=== PATIENT | male | born 1960 | race Caucasian/White ===

== ENCOUNTER 2017-07-13 14:41 | Inpatient (IN) | payer OTHER ==
[~2017-07-13] VITALS: Ht 172.7 cm; Wt 101.8 kg
[2017-07-13] MEDS ORDERED: ONDANSETRON 2MG/ML, 2ML ONE (15:06)
[2017-07-13] MEDS ORDERED: HYDROmorphone 2 MG/ML, 1ML ONE ×4 (15:06→19:28)
[2017-07-13] MEDS: HYDROmorphone 1 MG/ML, 1ML IVPush PRN ×4 (15:12→17:39)
[2017-07-13 15:19] LABS: HEMATOCRIT 51.5 % (39.2-51.8); HEMOGLOBIN 17.1 g/dL (13.7-18.0); WHITE BLOOD COUNT 18.3 x10^3/uL (3.4-10)
[2017-07-13 15:30] LABS: BLOOD UREA NITROGEN 16 mg/dL (7-18)
[2017-07-13] MEDS ORDERED: ONDANSETRON 2MG/ML, 2ML IVPush ONE (15:30)
[2017-07-13] MEDS ORDERED: SODIUM CHLORIDE 0.9% 1,000ML IVBOLUS ONE ×2 (15:30→17:00)
[2017-07-13] MEDS ORDERED: SODIUM CHLORIDE FLUSH 10ML SYR IVF ONE (15:30)
[2017-07-13 15:32] LABS: ASPARTATE AMINO TRANSFERASE 153 U/L (15-37)
[2017-07-13 15:35] LABS: DIFF TOTAL CELLS COUNTED 100 CELL DIFF
[2017-07-13 15:38] LABS: VERIFY COUNTS? YES
[2017-07-13] MEDS ORDERED: SUVO20TA PO (16:18)
[2017-07-13] MEDS ORDERED: TRAZ100T15 PO (16:18)
[2017-07-13] MEDS ORDERED: LISI1TAB3 PO (16:18)
[2017-07-13] MEDS ORDERED: BUPR150T6 PO (16:18)
[2017-07-13] MEDS ORDERED: PIPERACILLIN/TAZO/PMX 3.375GM 50 ML ONE (16:42)
[2017-07-13] MEDS ORDERED: PIPERACILLIN/TAZO/PMX 3.375GM 50 ML IV ONE (17:00)
[2017-07-13] MEDS ORDERED: SODIUM CHLORIDE 0.9% 1,000 ML IV ONE (17:27)
[2017-07-13] MEDS ORDERED: LABETALOL 5MG/ML, 20ML IVPush PRN (17:30)
[2017-07-13] MEDS ORDERED: ACETAMINOPHEN 325 MG TABLET PO PRN (17:30)
[2017-07-13] MEDS ORDERED: DOCUSATE 100 MG CAPSULE PO PRN (17:30)
[2017-07-13] MEDS: PIPERACILLIN/TAZO/PMX 3.375GM 50 ML IV SCH ×2 (17:30→23:57)
[2017-07-13] MEDS ORDERED: POLYETHYLENE GLYCOL 17 GM PACKET PO PRN (17:30)
[2017-07-13] MEDS ORDERED: SODIUM CHLORIDE FLUSH 10ML SYR IVF PRN (17:30)
[2017-07-13] MEDS ORDERED: BISACODYL 10 MG SUPP PR PRN (17:30)
[2017-07-13] MEDS ORDERED: HYDROmorphone 1 MG/ML, 1ML IVPush PRN (17:30)
[2017-07-13] MEDS ORDERED: ONDANSETRON 2MG/ML, 2ML IVPush PRN ×2 (17:30)
[2017-07-13] MEDS: POTASSIUM CHLORIDE 20 MEQ in LACTATED RINGERS 1,000 ML IV SCH (19:03)
[2017-07-13] MEDS: HYDROmorphone 2 MG/ML, 1ML IVPush PRN ×3 (19:30→22:52)
[2017-07-13] MEDS: TEMPLATE NON-FORMULARY MED. (Suvorexant (Belsomra) 20 MG) HOMEMEDPO SCH (21:00)
[2017-07-13] MEDS: TRAZODONE 100MG TABLET PO SCH (21:00)
[2017-07-13 21:01] VITALS: BP 149/103
[2017-07-13] MEDS ORDERED: DIPHENHYDRAMINE 50 MG/ML, 1ML IVPush ONE (21:30)
[2017-07-14] MEDS ORDERED: KETOROLAC 30 MG/1 ML IVPush PRN ×2 (01:30)
[2017-07-14] MEDS: HYDROmorphone 2 MG/ML, 1ML IVPush PRN ×9 (02:00→22:46)
[2017-07-14] MEDS: KETOROLAC 30 MG/1 ML IVPush PRN ×3 (02:00→19:45)
[2017-07-14] MEDS ORDERED: KETOROLAC 30 MG/1 ML IVPush ONE (02:00)
[2017-07-14] MEDS: POTASSIUM CHLORIDE 20 MEQ in LACTATED RINGERS 1,000 ML IV SCH (03:10)
[2017-07-14 03:11] VITALS: BP 121/82
[2017-07-14] MEDS: PIPERACILLIN/TAZO/PMX 3.375GM 50 ML IV SCH ×4 (05:36→22:18)
[2017-07-14 05:48] LABS: HEMATOCRIT 48.1 % (39.2-51.8); HEMOGLOBIN 16.2 g/dL (13.7-18.0); WHITE BLOOD COUNT 16.7 x10^3/uL (3.4-10)
[2017-07-14 06:13] LABS: ASPARTATE AMINO TRANSFERASE 484 U/L (15-37); BLOOD UREA NITROGEN 19 mg/dL (7-18)
[2017-07-14 06:39] VITALS: BP 93/52
[2017-07-14 06:50] VITALS: BP 122/86
[2017-07-14] MEDS: LACTATED RINGERS 1,000 ML IV SCH ×3 (07:51→23:25)
[2017-07-14] MEDS: TEMPLATE NON-FORMULARY MED. (Bupropion Hcl** (Bupropion Xl**) 150 MG) HOMEMEDPO SCH (09:27)
[2017-07-14] MEDS: LISINOPRIL 10 MG TABLET PO SCH (09:27)
[2017-07-14] MEDS: HYDROCHLOROTHIAZIDE 12.5 MG CAPSULE PO SCH (09:27)
[2017-07-14] MEDS ORDERED: BUPIVACAINE/PF 0.5% ONE (11:22)
[2017-07-14] MEDS ORDERED: EPINEPHRINE 1 MG/ML, 1ML ONE (11:23)
[2017-07-14] MEDS ORDERED: GLUCAGON 1 MG ONE (12:31)
[2017-07-14] MEDS ORDERED: FENTANYL PF 250 MCG/5ML ONE ×2 (13:05→13:12)
[2017-07-14] MEDS ORDERED: MIDAZOLAM 1 MG/ML, 2ML ONE ×2 (13:05→13:12)
[2017-07-14] MEDS ORDERED: SUCCINYLCHOLINE 20 MG/ML, 10ML ONE ×2 (13:08→13:12)
[2017-07-14] MEDS ORDERED: LIDOCAINE GEL 2%, 5ML ONE (13:08)
[2017-07-14] MEDS ORDERED: PROPOFOL 10 MG/ML, 20ML ONE ×3 (13:08→13:12)
[2017-07-14] MEDS ORDERED: ALBUTEROL SULFATE 200 PUFFS/8.5 GR INH ONE (13:12)
[2017-07-14] MEDS ORDERED: ONDANSETRON 2MG/ML, 2ML ONE (13:12)
[2017-07-14] MEDS ORDERED: ROCURONIUM 10 MG/ML,10ML ONE (13:12)
[2017-07-14] MEDS ORDERED: DEXAMETHASONE 4 MG/ML, 1ML ONE (13:12)
[2017-07-14] MEDS ORDERED: BUPIVACAINE/PF 0.5% INFIL ONE (13:35)
[2017-07-14] MEDS ORDERED: OMNIPAQUE 350 MG/ML, 50 ML BOTTLE IV ONE (13:45)
[2017-07-14] MEDS ORDERED: OMNIPAQUE 350 MG/ML, 50 ML BOTTLE ONE (14:22)
[2017-07-14] MEDS ORDERED: MEPERIDINE/PF 50 MG/ML ONE (15:02)
[2017-07-14] MEDS ORDERED: MEPERIDINE/PF 25MG/0.5ML IVPush PRN (15:30)
[2017-07-14 15:57] VITALS: BP 127/79
[2017-07-14] MEDS: TEMPLATE NON-FORMULARY MED. (Suvorexant (Belsomra) 20 MG) HOMEMEDPO SCH (19:46)
[2017-07-14] MEDS: TRAZODONE 100MG TABLET PO SCH (19:46)
[2017-07-14 20:45] VITALS: BP 127/63
[2017-07-15 00:08] VITALS: BP 102/65
[2017-07-15] MEDS: HYDROmorphone 2 MG/ML, 1ML IVPush PRN ×7 (00:48→22:22)
[2017-07-15] MEDS: KETOROLAC 30 MG/1 ML IVPush PRN (02:03)
[2017-07-15 02:57] VITALS: BP 94/62
[2017-07-15] MEDS: PIPERACILLIN/TAZO/PMX 3.375GM 50 ML IV SCH ×4 (04:49→22:08)
[2017-07-15 05:36] LABS: HEMATOCRIT 40.1 % (39.2-51.8); HEMOGLOBIN 13.6 g/dL (13.7-18.0); WHITE BLOOD COUNT 15.9 x10^3/uL (3.4-10)
[2017-07-15] MEDS: LACTATED RINGERS 1,000 ML IV SCH ×3 (06:06→22:08)
[2017-07-15 06:11] LABS: ASPARTATE AMINO TRANSFERASE 267 U/L (15-37); BLOOD UREA NITROGEN 32 mg/dL (7-18)
[2017-07-15 06:25] LABS: DIFF TOTAL CELLS COUNTED 100 CELL DIFF
[2017-07-15 06:26] LABS: VERIFY COUNTS? YES
[2017-07-15 07:07] VITALS: BP 114/69
[2017-07-15] MEDS: HYDROcodone/APAP 5/325 TABLET PO PRN ×2 (08:45→14:19)
[2017-07-15] MEDS: HYDROCHLOROTHIAZIDE 12.5 MG CAPSULE PO SCH (08:45)
[2017-07-15] MEDS: LISINOPRIL 10 MG TABLET PO SCH (08:46)
[2017-07-15] MEDS: TEMPLATE NON-FORMULARY MED. (Bupropion Hcl** (Bupropion Xl**) 150 MG) HOMEMEDPO SCH (09:00)
[2017-07-15] MEDS ORDERED: SODIUM CHLORIDE 0.9%, 500ML IVBOLUS ONE (11:00)
[2017-07-15] MEDS ORDERED: LORazepam 2 MG/ML, 1ML IVPush PRN (11:00)
[2017-07-15] MEDS: DIPHENHYDRAMINE 50 MG/ML, 1ML IVPush PRN ×2 (11:48→22:22)
[2017-07-15 13:33] VITALS: BP 125/84
[2017-07-15] MEDS: TEMPLATE NON-FORMULARY MED. (Suvorexant (Belsomra) 20 MG) HOMEMEDPO SCH (20:08)
[2017-07-15] MEDS: TRAZODONE 100MG TABLET PO SCH (20:09)
[2017-07-15 21:00] VITALS: BP 108/73
[2017-07-16] MEDS: HYDROmorphone 2 MG/ML, 1ML IVPush PRN ×7 (01:20→23:32)
[2017-07-16 01:34] VITALS: BP 131/88
[2017-07-16] MEDS: PIPERACILLIN/TAZO/PMX 3.375GM 50 ML IV SCH ×4 (03:56→22:12)
[2017-07-16] MEDS: LACTATED RINGERS 1,000 ML IV SCH ×2 (04:02→13:02)
[2017-07-16 05:40] LABS: HEMATOCRIT 37.9 % (39.2-51.8); HEMOGLOBIN 12.8 g/dL (13.7-18.0); WHITE BLOOD COUNT 16.5 x10^3/uL (3.4-10)
[2017-07-16 06:00] LABS: ASPARTATE AMINO TRANSFERASE 109 U/L (15-37); BLOOD UREA NITROGEN 16 mg/dL (7-18)
[2017-07-16 06:17] LABS: DIFF TOTAL CELLS COUNTED 100 CELL DIFF
[2017-07-16 06:19] LABS: VERIFY COUNTS? YES
[2017-07-16 07:24] VITALS: BP 135/84
[2017-07-16] MEDS: LISINOPRIL 10 MG TABLET PO SCH ×2 (08:13→08:18)
[2017-07-16] MEDS: HYDROCHLOROTHIAZIDE 12.5 MG CAPSULE PO SCH ×2 (08:13→08:18)
[2017-07-16] MEDS: TEMPLATE NON-FORMULARY MED. (Bupropion Hcl** (Bupropion Xl**) 150 MG) HOMEMEDPO SCH (09:00)
[2017-07-16 13:15] VITALS: BP 151/89
[2017-07-16] MEDS: DIPHENHYDRAMINE 50 MG/ML, 1ML IVPush PRN (18:19)
[2017-07-16 18:52] VITALS: BP 134/85
[2017-07-16] MEDS: TEMPLATE NON-FORMULARY MED. (Suvorexant (Belsomra) 20 MG) HOMEMEDPO SCH (19:57)
[2017-07-16] MEDS: TRAZODONE 100MG TABLET PO SCH (19:57)
[2017-07-16] MEDS: METOCLOPRAMIDE 5 MG/ML, 2ML IV SCH (21:11)
[2017-07-17] MEDS: LACTATED RINGERS 1,000 ML IV SCH ×4 (01:16→22:36)
[2017-07-17] MEDS: HYDROmorphone 2 MG/ML, 1ML IVPush PRN ×5 (01:18→22:37)
[2017-07-17 02:40] VITALS: BP 157/106
[2017-07-17] MEDS: PIPERACILLIN/TAZO/PMX 3.375GM 50 ML IV SCH ×2 (03:36→10:33)
[2017-07-17] MEDS: METOCLOPRAMIDE 5 MG/ML, 2ML IV SCH ×4 (03:36→20:29)
[2017-07-17 05:23] LABS: HEMATOCRIT 34.9 % (39.2-51.8); WHITE BLOOD COUNT 18.2 x10^3/uL (3.4-10)
[2017-07-17 05:25] VITALS: BP 159/89
[2017-07-17 05:29] LABS: ASPARTATE AMINO TRANSFERASE 59 U/L (15-37); BLOOD UREA NITROGEN 14 mg/dL (7-18)
[2017-07-17 06:05] LABS: DIFF TOTAL CELLS COUNTED 100 CELL DIFF; VERIFY COUNTS? YES
[2017-07-17] MEDS: HYDROCHLOROTHIAZIDE 12.5 MG CAPSULE PO SCH (08:26)
[2017-07-17] MEDS: TEMPLATE NON-FORMULARY MED. (Bupropion Hcl** (Bupropion Xl**) 150 MG) HOMEMEDPO SCH (08:26)
[2017-07-17] MEDS: LISINOPRIL 10 MG TABLET PO SCH (08:26)
[2017-07-17 14:55] VITALS: BP 148/85
[2017-07-17] MEDS: PIPERACILLIN/TAZO 3.375 GM in SODIUM CHLORIDE 0.9% 50 ML IV SCH ×2 (16:54→22:36)
[2017-07-17] MEDS: TEMPLATE NON-FORMULARY MED. (Suvorexant (Belsomra) 20 MG) HOMEMEDPO SCH (19:58)
[2017-07-17] MEDS: TRAZODONE 100MG TABLET PO SCH (19:58)
[2017-07-17 20:00] VITALS: BP 146/80
[2017-07-17] MEDS ORDERED: OMNIPAQUE 350 MG/ML, 100ML BOTTLE ONE (20:04)
[2017-07-17] MEDS: DIPHENHYDRAMINE 50 MG/ML, 1ML IVPush PRN (21:05)
[2017-07-17] MEDS ORDERED: PIPERACILLIN/TAZO 3.375 GM in SODIUM CHLORIDE 0.9% 50 ML IV SCH (22:00)
[2017-07-18 01:59] VITALS: BP 142/94
[2017-07-18] MEDS: HYDROmorphone 2 MG/ML, 1ML IVPush PRN ×3 (03:03→08:22)
[2017-07-18] MEDS: METOCLOPRAMIDE 5 MG/ML, 2ML IV SCH ×4 (03:03→22:40)
[2017-07-18] MEDS: LACTATED RINGERS 1,000 ML IV SCH ×4 (04:37→22:41)
[2017-07-18] MEDS: PIPERACILLIN/TAZO 3.375 GM in SODIUM CHLORIDE 0.9% 50 ML IV SCH ×4 (04:37→22:40)
[2017-07-18 07:06] VITALS: BP 132/81
[2017-07-18] MEDS: TEMPLATE NON-FORMULARY MED. (Bupropion Hcl** (Bupropion Xl**) 150 MG) HOMEMEDPO SCH ×2 (08:38→17:23)
[2017-07-18] MEDS: HYDROCHLOROTHIAZIDE 12.5 MG CAPSULE PO SCH ×2 (08:39→12:49)
[2017-07-18] MEDS: LISINOPRIL 10 MG TABLET PO SCH ×2 (08:39→12:49)
[2017-07-18 09:36] LABS: HEMATOCRIT 34.1 % (39.2-51.8); HEMOGLOBIN 11.4 g/dL (13.7-18.0); WHITE BLOOD COUNT 14.8 x10^3/uL (3.4-10)
[2017-07-18 09:47] LABS: BLOOD UREA NITROGEN 13 mg/dL (7-18)
[2017-07-18] MEDS: HYDROcodone/APAP 5/325 TABLET PO PRN ×3 (12:47→20:48)
[2017-07-18 14:35] VITALS: BP 142/91
[2017-07-18 20:23] VITALS: BP 147/91
[2017-07-18] MEDS: TEMPLATE NON-FORMULARY MED. (Suvorexant (Belsomra) 20 MG) HOMEMEDPO SCH (21:00)
[2017-07-18] MEDS: TRAZODONE 100MG TABLET PO SCH (21:00)
[2017-07-19] MEDS: HYDROcodone/APAP 5/325 TABLET PO PRN ×4 (00:48→14:01)
[2017-07-19 01:27] VITALS: BP 141/80
[2017-07-19] MEDS: METOCLOPRAMIDE 5 MG/ML, 2ML IV SCH ×2 (04:47→11:12)
[2017-07-19] MEDS: PIPERACILLIN/TAZO 3.375 GM in SODIUM CHLORIDE 0.9% 50 ML IV SCH ×2 (04:47→11:12)
[2017-07-19 05:32] LABS: ASPARTATE AMINO TRANSFERASE 48 U/L (15-37); BLOOD UREA NITROGEN 9 mg/dL (7-18); HEMOGLOBIN 12.9 g/dL (13.7-18.0); WHITE BLOOD COUNT 17.4 x10^3/uL (3.4-10)
[2017-07-19] MEDS: LACTATED RINGERS 1,000 ML IV SCH ×2 (05:58→13:00)
[2017-07-19 07:16] VITALS: BP 137/88
[2017-07-19] MEDS: TEMPLATE NON-FORMULARY MED. (Bupropion Hcl** (Bupropion Xl**) 150 MG) HOMEMEDPO SCH (09:00)
[2017-07-19] MEDS: HYDROCHLOROTHIAZIDE 12.5 MG CAPSULE PO SCH (09:03)
[2017-07-19] MEDS: LISINOPRIL 10 MG TABLET PO SCH (09:03)
[2017-07-19 13:16] VITALS: BP 137/86
[2017-07-19] MEDS ORDERED: CEFD300C37 PO (13:45)
[2017-07-19] MEDS ORDERED: METR500T PO (13:45)
== END 2017-07-19 16:40 | disposition home or self-care (01) | DRG 417 ==
LOC: ED 17:21 → EDIP 17:27 → 4NOR 20:24
PROVIDERS: ADMIT Internal Medicine; ATTEND Internal Medicine
PROC: BF101ZZ Fluoroscopy of Bile Ducts using Low Osmolar Contrast (ICD-10-PCS; 2017-07-14)
PROC: 0FT44ZZ Resection of Gallbladder, Percutaneous Endoscopic Approach (ICD-10-PCS; principal; 2017-07-14 12:30)
DX: K80.33 Calculus of bile duct with acute cholangitis with obstruction (principal); K85.10 Biliary acute pancreatitis without necrosis or infection; I11.9 Hypertensive heart disease without heart failure; E66.01 Morbid (severe) obesity due to excess calories; K76.0 Fatty (change of) liver, not elsewhere classified; K80.20 Calculus of gallbladder without cholecystitis without obstruction; F41.9 Anxiety disorder, unspecified; Z68.34 Body mass index [BMI] 34.0-34.9, adult; Z98.84 Bariatric surgery status
CPT/HCPCS: 36415; 74000; 74177; 74181; 74300; 76700; 78226; 80048; 80053; 83690; 84132; 85025; 85379; 87040; 88304; 93005; 96365; 96366; 96375; 96376; J0171; J1100; J1170; J1885; J2175; J2250; J2405; J2543; J2704; J3010; J3480; J3490; Q9967; A9537; C9898; J0330; J1200; J1610; J2060; J2765; J7030; J7040; J7120

== ENCOUNTER 2017-07-23 04:30 | Inpatient (IN) | payer OTHER ==
[~2017-07-23] VITALS: Ht 172.7 cm; Wt 91.2 kg
[~2017-07-23 04:30] MED LIST: BUPR150T6 PO; CEFD300C37 PO; LISI1TAB3 PO; METR500T PO; SUVO20TA PO; TRAZ100T15 PO
[2017-07-23] MEDS ORDERED: FAMOTIDINE 20 MG/2 ML IVP ONE (05:00)
[2017-07-23] MEDS ORDERED: SODIUM CHLORIDE 0.9% 1,000ML IVBOLUS ONE (05:00)
[2017-07-23] MEDS ORDERED: SODIUM CHLORIDE FLUSH 10ML SYR IVF ONE (05:00)
[2017-07-23] MEDS ORDERED: ONDANSETRON 2MG/ML, 2ML IVPush ONE (05:00)
[2017-07-23] MEDS ORDERED: ONDANSETRON 2MG/ML, 2ML ONE (05:12)
[2017-07-23] MEDS ORDERED: FAMOTIDINE 20 MG/2 ML ONE (05:12)
[2017-07-23] MEDS ORDERED: MORPHINE SULFATE 4 MG/ML, 1ML ONE ×2 (05:12→06:52)
[2017-07-23 05:23] LABS: MEAN CORPUSCULAR HEMOGLOBIN 28.8 pg (27.5-34.5); MEAN CORPUSCULAR HGB CONC 33.7 g/dL (33.2-36.2); MEAN CORPUSCULAR VOLUME 85.5 fL (81-97); MEAN PLATELET VOLUME 6.8 fL (7.4-10.4); PLATELET COUNT 585 x10^3/uL (130-400); RED BLOOD COUNT 4.57 x10^6/uL (4.38-5.82); RED CELL DISTRIBUTION WIDTH 14.3 % (9.4-14.8)
[2017-07-23] MEDS: MORPHINE SULFATE 4 MG/ML, 1ML IVPush PRN ×2 (05:25→07:00)
[2017-07-23 05:35] LABS: ANION GAP 12 mmol/L (5-15); CHLORIDE 99 mmol/L (98-107)
[2017-07-23 05:43] LABS: ALANINE AMINOTRANSFERASE 50 U/L (12-78); ALKALINE PHOSPHATASE 55 U/L (45-117); BILIRUBIN,TOTAL 0.9 mg/dL (0.2-1.0); CREATININE 0.66 mg/dL (0.7-1.3); TOTAL PROTEIN 7.4 g/dL (6.4-8.2)
[2017-07-23 05:53] LABS: MD YES
[2017-07-23 05:55] LABS: <PLATELET ESTIMATE> INCREASED; <PLT MORPHOLOGY> NORMAL PLT MORPH; <RBC MORPHOLOGY> NORMAL; BAND#(MANUAL) 0.66 x10^3/uL; BANDS%(MANUAL) 3 % (0-7); LYMPH#(MANUAL) 2.21 x10^3/uL (1-3.4); LYMPHS% (MANUAL) 10 % (22-44); MONOS#(MANUAL) 1.77 x10^3/uL (0.3-2.7); MONOS% (MANUAL) 8 % (2-9); SEG#(MANUAL) 17.46 x10^3/uL (1.8-6.8); SEGS% (MANUAL) 79 % (42-75)
[2017-07-23 06:26] LABS: MICROSCOPIC INDICATED
[2017-07-23 06:34] LABS: CULTURE INDICATED? NO
[2017-07-23] MEDS ORDERED: OMNIPAQUE 350 MG/ML, 100ML BOTTLE ONE (06:37)
[2017-07-23] MEDS ORDERED: SODIUM CHLORIDE 0.9% 1,000 ML IV ONE (07:43)
[2017-07-23] MEDS ORDERED: PIPERACILLIN/TAZO/PMX 3.375GM 50 ML ONE (07:43)
[2017-07-23] MEDS ORDERED: SODIUM CHLORIDE FLUSH 10ML SYR IVF PRN (08:00)
[2017-07-23] MEDS ORDERED: PIPERACILLIN/TAZO/PMX 3.375GM 50 ML IVPB ONE (08:00)
[2017-07-23 08:25] VITALS: BP 118/69
[2017-07-23 08:49] VITALS: BP 109/70
[2017-07-23] MEDS: PIPERACILLIN/TAZO/PMX 3.375GM 50 ML IV SCH ×2 (09:50→17:17)
[2017-07-23] MEDS ORDERED: SODIUM CHLORIDE 0.9% 1,000 ML IV SCH (11:04)
[2017-07-23] MEDS: HEPARIN 5,000 UNITS/ML, 1ML SQ SCH ×2 (11:19→21:21)
[2017-07-23] MEDS: morphine SULFATE 10 MG/ML, 1ML IVPush PRN ×4 (11:19→21:20)
[2017-07-23 16:00] VITALS: BP 116/75
[2017-07-23 19:40] VITALS: BP 109/63
[2017-07-23] MEDS: POTASSIUM CHLORIDE 20 MEQ in SODIUM CHLORIDE 0.9% 1,000 ML IV SCH (22:01)
[2017-07-24] MEDS: morphine SULFATE 10 MG/ML, 1ML IVPush PRN ×8 (00:04→22:48)
[2017-07-24] MEDS: PIPERACILLIN/TAZO/PMX 3.375GM 50 ML IV SCH ×3 (00:53→17:26)
[2017-07-24 01:28] VITALS: BP 108/68
[2017-07-24 05:01] LABS: MEAN CORPUSCULAR HEMOGLOBIN 28.8 pg (27.5-34.5); MEAN CORPUSCULAR HGB CONC 33.5 g/dL (33.2-36.2); MEAN CORPUSCULAR VOLUME 85.9 fL (81-97); MEAN PLATELET VOLUME 6.7 fL (7.4-10.4); PLATELET COUNT 586 x10^3/uL (130-400); RED BLOOD COUNT 4.22 x10^6/uL (4.38-5.82); RED CELL DISTRIBUTION WIDTH 14.4 % (9.4-14.8)
[2017-07-24 05:13] LABS: ALBUMIN 1.8 g/dL (3.4-5.0); ANION GAP 9 mmol/L (5-15); CALCIUM 7.8 mg/dL (8.5-10.1); CHLORIDE 105 mmol/L (98-107)
[2017-07-24 05:17] LABS: ALANINE AMINOTRANSFERASE 43 U/L (12-78); ALKALINE PHOSPHATASE 50 U/L (45-117); BILIRUBIN,TOTAL 1.2 mg/dL (0.2-1.0); CREATININE 0.64 mg/dL (0.7-1.3); TOTAL PROTEIN 7.2 g/dL (6.4-8.2)
[2017-07-24 05:24] LABS: BASOPHILS # (AUTO) 0.02 x10^3/uL (0-0.1); BASOPHILS % (AUTO) 0 % (0-1); EOSINOPHILS # (AUTO) 0.08 x10^3/uL (0-0.4); EOSINOPHILS % (AUTO) 0 % (1-7); LYMPHOCYTES # (AUTO) 1.27 x10^3/uL (1-3.4); LYMPHOCYTES % (AUTO) 7 % (22-44); MD SCAN; MONOCYTES # (AUTO) 1.27 x10^3/uL (0.2-0.8); MONOCYTES % (AUTO) 7 % (2-9); NEUTROPHILS # (AUTO) 15.87 x10^3/uL (1.8-6.8); NEUTROPHILS % (AUTO) 86 % (42-75)
[2017-07-24] MEDS: HEPARIN 5,000 UNITS/ML, 1ML SQ SCH ×4 (06:17→20:51)
[2017-07-24 07:29] VITALS: BP 118/71
[2017-07-24] MEDS: POTASSIUM CHLORIDE 20 MEQ in SODIUM CHLORIDE 0.9% 1,000 ML IV SCH ×2 (08:34→20:47)
[2017-07-24] MEDS ORDERED: POTASSIUM CHLORIDE 20 MEQ in SODIUM CHLORIDE 0.9% 1,000 ML IV SCH (11:04)
[2017-07-24 14:00] VITALS: BP 118/73
[2017-07-24] MEDS ORDERED: POLYETHYLENE GLYCOL 17 GM PACKET PO PRN (19:00)
[2017-07-24 19:31] VITALS: BP 127/74
[2017-07-25 01:01] VITALS: BP 134/79
[2017-07-25] MEDS: PIPERACILLIN/TAZO/PMX 3.375GM 50 ML IV SCH ×3 (01:28→16:58)
[2017-07-25] MEDS: morphine SULFATE 10 MG/ML, 1ML IVPush PRN ×7 (01:37→22:47)
[2017-07-25] MEDS: HEPARIN 5,000 UNITS/ML, 1ML SQ SCH ×3 (05:04→20:29)
[2017-07-25 06:03] VITALS: BP 111/52
[2017-07-25 06:04] LABS: BASOPHILS # (AUTO) 0.01 x10^3/uL (0-0.1); BASOPHILS % (AUTO) 0 % (0-1); EOSINOPHILS # (AUTO) 0.05 x10^3/uL (0-0.4); EOSINOPHILS % (AUTO) 0 % (1-7); LYMPHOCYTES # (AUTO) 1.27 x10^3/uL (1-3.4); LYMPHOCYTES % (AUTO) 8 % (22-44); MD NO; MEAN CORPUSCULAR HEMOGLOBIN 28.9 pg (27.5-34.5); MEAN CORPUSCULAR HGB CONC 33.7 g/dL (33.2-36.2); MEAN CORPUSCULAR VOLUME 85.6 fL (81-97); MEAN PLATELET VOLUME 6.9 fL (7.4-10.4); MONOCYTES # (AUTO) 1.31 x10^3/uL (0.2-0.8); MONOCYTES % (AUTO) 8 % (2-9); NEUTROPHILS # (AUTO) 13.11 x10^3/uL (1.8-6.8); NEUTROPHILS % (AUTO) 83 % (42-75); PLATELET COUNT 661 x10^3/uL (130-400); RED CELL DISTRIBUTION WIDTH 14.1 % (9.4-14.8)
[2017-07-25 06:11] LABS: CHLORIDE 101 mmol/L (98-107)
[2017-07-25 06:29] LABS: ALANINE AMINOTRANSFERASE 41 U/L (12-78); ALBUMIN 1.8 g/dL (3.4-5.0); ALKALINE PHOSPHATASE 52 U/L (45-117); ANION GAP 10 mmol/L (5-15); CALCIUM 7.8 mg/dL (8.5-10.1); CREATININE 0.64 mg/dL (0.7-1.3); TOTAL PROTEIN 7.4 g/dL (6.4-8.2)
[2017-07-25] MEDS: POTASSIUM CHLORIDE 20 MEQ in SODIUM CHLORIDE 0.9% 1,000 ML IV SCH ×2 (07:33→16:58)
[2017-07-25 08:26] VITALS: BP 129/75
[2017-07-25 14:23] VITALS: BP 144/78
[2017-07-25 19:57] VITALS: BP 147/83
[2017-07-25] MEDS: ALUMINUM/MAG/SIMETHICONE 30 ML UDC PO PRN (20:27)
[2017-07-26 00:52] VITALS: BP 129/64
[2017-07-26] MEDS: morphine SULFATE 10 MG/ML, 1ML IVPush PRN ×8 (01:47→23:41)
[2017-07-26] MEDS: PIPERACILLIN/TAZO/PMX 3.375GM 50 ML IV SCH ×3 (01:49→21:30)
[2017-07-26] MEDS: SENNA/DOCUSATE TABLET PO PRN (01:49)
[2017-07-26] MEDS: POTASSIUM CHLORIDE 20 MEQ in SODIUM CHLORIDE 0.9% 1,000 ML IV SCH ×2 (02:45→11:19)
[2017-07-26] MEDS: HEPARIN 5,000 UNITS/ML, 1ML SQ SCH ×3 (04:41→20:12)
[2017-07-26 04:54] LABS: ANION GAP 10 mmol/L (5-15); BASOPHILS # (AUTO) 0.02 x10^3/uL (0-0.1); BASOPHILS % (AUTO) 0 % (0-1); CALCIUM 7.6 mg/dL (8.5-10.1); CHLORIDE 99 mmol/L (98-107); EOSINOPHILS # (AUTO) 0.02 x10^3/uL (0-0.4); EOSINOPHILS % (AUTO) 0 % (1-7); LYMPHOCYTES # (AUTO) 1.22 x10^3/uL (1-3.4); LYMPHOCYTES % (AUTO) 7 % (22-44); MD NO; MEAN CORPUSCULAR HEMOGLOBIN 28.7 pg (27.5-34.5); MEAN CORPUSCULAR HGB CONC 33.4 g/dL (33.2-36.2); MEAN PLATELET VOLUME 6.9 fL (7.4-10.4); MONOCYTES # (AUTO) 1.18 x10^3/uL (0.2-0.8); MONOCYTES % (AUTO) 7 % (2-9); NEUTROPHILS # (AUTO) 14.25 x10^3/uL (1.8-6.8); NEUTROPHILS % (AUTO) 85 % (42-75); PLATELET COUNT 776 x10^3/uL (130-400); RED BLOOD COUNT 3.82 x10^6/uL (4.38-5.82); RED CELL DISTRIBUTION WIDTH 14.1 % (9.4-14.8)
[2017-07-26 04:57] LABS: CREATININE 0.62 mg/dL (0.7-1.3)
[2017-07-26 06:48] VITALS: BP 148/91
[2017-07-26] MEDS ORDERED: SODIUM PHOSPHATE 4 MEQ/ML IV ONE (14:00)
[2017-07-26 14:30] VITALS: BP 129/84
[2017-07-26] MEDS ORDERED: SODIUM PHOSPHATE 30 MMOL in SODIUM CHLORIDE 0.9% 500 ML IV ONE (14:30)
[2017-07-26 19:52] VITALS: BP 153/80
[2017-07-26] MEDS: ALUMINUM/MAG/SIMETHICONE 30 ML UDC PO PRN (20:14)
[2017-07-27] MEDS: morphine SULFATE 10 MG/ML, 1ML IVPush PRN ×6 (02:38→22:58)
[2017-07-27 02:42] VITALS: BP 141/85
[2017-07-27 03:15] LABS: MEAN CORPUSCULAR HEMOGLOBIN 28.9 pg (27.5-34.5); MEAN CORPUSCULAR HGB CONC 33.6 g/dL (33.2-36.2); MEAN CORPUSCULAR VOLUME 85.9 fL (81-97); MEAN PLATELET VOLUME 6.5 fL (7.4-10.4); PLATELET COUNT 782 x10^3/uL (130-400); RED BLOOD COUNT 3.68 x10^6/uL (4.38-5.82)
[2017-07-27 03:29] LABS: ALANINE AMINOTRANSFERASE 50 U/L (12-78); ALBUMIN 1.6 g/dL (3.4-5.0); ANION GAP 12 mmol/L (5-15); CALCIUM 7.8 mg/dL (8.5-10.1); CHLORIDE 98 mmol/L (98-107)
[2017-07-27 03:32] LABS: ALKALINE PHOSPHATASE 76 U/L (45-117); BILIRUBIN,TOTAL 1.2 mg/dL (0.2-1.0); CREATININE 0.42 mg/dL (0.7-1.3); TOTAL PROTEIN 7.3 g/dL (6.4-8.2)
[2017-07-27] MEDS: POTASSIUM CHLORIDE 20 MEQ in SODIUM CHLORIDE 0.9% 1,000 ML IV SCH (03:36)
[2017-07-27] MEDS: OXYcodone IR 5MG TABLET PO PRN (03:42)
[2017-07-27 03:55] LABS: BASOPHILS # (AUTO) 0.06 x10^3/uL (0-0.1); BASOPHILS % (AUTO) 0 % (0-1); EOSINOPHILS # (AUTO) 0.01 x10^3/uL (0-0.4); EOSINOPHILS % (AUTO) 0 % (1-7); LYMPHOCYTES # (AUTO) 0.95 x10^3/uL (1-3.4); LYMPHOCYTES % (AUTO) 6 % (22-44); MD SCAN; MONOCYTES # (AUTO) 0.26 x10^3/uL (0.2-0.8); MONOCYTES % (AUTO) 2 % (2-9); NEUTROPHILS # (AUTO) 13.81 x10^3/uL (1.8-6.8); NEUTROPHILS % (AUTO) 92 % (42-75)
[2017-07-27] MEDS: HEPARIN 5,000 UNITS/ML, 1ML SQ SCH ×3 (05:00→19:50)
[2017-07-27] MEDS: PIPERACILLIN/TAZO/PMX 3.375GM 50 ML IV SCH ×2 (05:46→19:50)
[2017-07-27] MEDS ORDERED: OMNIPAQUE 350 MG/ML, 100ML BOTTLE ONE ×2 (08:26→08:30)
[2017-07-27] MEDS ORDERED: SODIUM CHLORIDE 0.9% IV SCH (09:00)
[2017-07-27] MEDS ORDERED: SODIUM PHOSPHATE 4 MEQ/ML IV SCH (09:00)
[2017-07-27] MEDS ORDERED: SODIUM PHOSPHATE IV SCH (09:00)
[2017-07-27] MEDS ORDERED: TPN PER PHARMACY MC PRN (10:00)
[2017-07-27] MEDS ORDERED: PANTOPRAZOLE 40 MG IV IVPush SCH (11:30)
[2017-07-27 12:15] VITALS: BP 153/89
[2017-07-27] MEDS ORDERED: MIDAZOLAM 1 MG/ML, 2ML ONE (14:13)
[2017-07-27] MEDS ORDERED: FENTANYL PF 250 MCG/5ML ONE (14:14)
[2017-07-27] MEDS ORDERED: GLYCOPYRROLATE 0.2MG/1ML, 5ML ONE (14:15)
[2017-07-27] MEDS ORDERED: DEXAMETHASONE 4 MG/ML, 1ML ONE (14:15)
[2017-07-27] MEDS ORDERED: SUCCINYLCHOLINE 20 MG/ML, 10ML ONE (14:15)
[2017-07-27] MEDS ORDERED: NEOSTIGMINE 1 MG/ML, 10ML ONE (14:15)
[2017-07-27] MEDS ORDERED: LIDOCAINE-MPF 2% ,5ML ONE (14:15)
[2017-07-27] MEDS ORDERED: ONDANSETRON 2MG/ML, 2ML ONE (14:15)
[2017-07-27] MEDS ORDERED: CEFAZOLIN 1,000 MG ONE (14:15)
[2017-07-27] MEDS ORDERED: ROCURONIUM 10 MG/ML,10ML ONE (14:15)
[2017-07-27] MEDS ORDERED: PROPOFOL 10 MG/ML, 20ML ONE (14:15)
[2017-07-27] MEDS ORDERED: BUPIVACAINE/PF 0.5% ONE (14:22)
[2017-07-27] MEDS ORDERED: EPINEPHRINE 1 MG/ML, 1ML ONE (14:22)
[2017-07-27] MEDS ORDERED: BUPIVACAINE/PF-EPI 0.5% 1:200K INFIL ONE (14:56)
[2017-07-27] MEDS ORDERED: LABETALOL 5MG/ML, 20ML IV PRN (15:30)
[2017-07-27] MEDS ORDERED: MEPERIDINE/PF 25MG/0.5ML IVPush PRN (15:30)
[2017-07-27] MEDS ORDERED: ALBUTEROL/IPRATROPIUM 2.5MG/0.5MG, 3 ML NPPB PRN (15:30)
[2017-07-27] MEDS ORDERED: PROMETHAZINE 25 MG/ML, 1ML IV PRN (15:30)
[2017-07-27] MEDS ORDERED: MIDAZOLAM 1 MG/ML, 2ML IV PRN (15:30)
[2017-07-27] MEDS ORDERED: HYDROmorphone 1 MG/ML, 1ML IV PRN (15:30)
[2017-07-27] MEDS ORDERED: LORazepam 2 MG/ML, 1ML IVPush PRN (15:30)
[2017-07-27] MEDS ORDERED: FENTANYL PF 100 MCG/2ML IV PRN (15:30)
[2017-07-27] MEDS ORDERED: ONDANSETRON 2MG/ML, 2ML IVPush PRN (15:30)
[2017-07-27] MEDS ORDERED: DIAZEPAM 5 MG/ML, 2ML IVPush PRN (15:30)
[2017-07-27] MEDS ORDERED: hydrALAzine 20 MG/ML, 1ML IV PRN (15:30)
[2017-07-27 17:15] VITALS: BP 141/75
[2017-07-27] MEDS: PANTOPRAZOLE 40 MG IV IVPush SCH (17:53)
[2017-07-27] MEDS: OCTREOTIDE 100MCG/ML, 1ML (0.1MG/ML) SQ SCH ×2 (18:01→21:09)
[2017-07-27 19:28] VITALS: BP 120/68
[2017-07-27] MEDS: ONDANSETRON 2MG/ML, 2ML IVPush PRN (22:58)
[2017-07-27] MEDS: D5%-0.45% NACL 1,000 ML IV SCH (22:59)
[2017-07-28] MEDS ORDERED: HYDROmorphone 2 MG/ML, 1ML ONE (00:57)
[2017-07-28] MEDS ORDERED: HYDROmorphone 1 MG/ML, 1ML IV ONE (01:00)
[2017-07-28 02:18] VITALS: BP 92/60
[2017-07-28] MEDS: PIPERACILLIN/TAZO/PMX 3.375GM 50 ML IV SCH ×3 (03:08→19:58)
[2017-07-28] MEDS: HEPARIN 5,000 UNITS/ML, 1ML SQ SCH ×3 (04:48→22:18)
[2017-07-28] MEDS: PANTOPRAZOLE 40 MG IV IVPush SCH ×2 (04:48→17:38)
[2017-07-28] MEDS: morphine SULFATE 10 MG/ML, 1ML IVPush PRN ×5 (04:54→23:32)
[2017-07-28 05:12] LABS: MEAN CORPUSCULAR HEMOGLOBIN 28.7 pg (27.5-34.5); MEAN CORPUSCULAR HGB CONC 33.2 g/dL (33.2-36.2); MEAN CORPUSCULAR VOLUME 86.5 fL (81-97); MEAN PLATELET VOLUME 6.6 fL (7.4-10.4); PLATELET COUNT 883 x10^3/uL (130-400); RED BLOOD COUNT 3.61 x10^6/uL (4.38-5.82); RED CELL DISTRIBUTION WIDTH 14.6 % (9.4-14.8)
[2017-07-28 05:17] LABS: ALBUMIN 1.3 g/dL (3.4-5.0); ANION GAP 7 mmol/L (5-15); CHLORIDE 103 mmol/L (98-107)
[2017-07-28 05:22] LABS: ALANINE AMINOTRANSFERASE 42 U/L (12-78); ALKALINE PHOSPHATASE 78 U/L (45-117); BILIRUBIN,TOTAL 0.9 mg/dL (0.2-1.0); CALCIUM 7.6 mg/dL (8.5-10.1); CREATININE 0.53 mg/dL (0.7-1.3); TOTAL PROTEIN 6.4 g/dL (6.4-8.2)
[2017-07-28 05:37] LABS: MD YES
[2017-07-28 05:39] LABS: BAND#(MANUAL) 1.97 x10^3/uL; BANDS%(MANUAL) 17 % (0-7); LYMPH#(MANUAL) 1.16 x10^3/uL (1-3.4); LYMPHS% (MANUAL) 10 % (22-44); MONOS#(MANUAL) 0.46 x10^3/uL (0.3-2.7); MONOS% (MANUAL) 4 % (2-9); SEGS% (MANUAL) 69 % (42-75)
[2017-07-28 05:40] LABS: <PLATELET ESTIMATE> INCREASED; <PLT MORPHOLOGY> NORMAL PLT MORPH; POLYCHROMASIA 1+
[2017-07-28 05:41] LABS: ANISOCYTOSIS 1+
[2017-07-28 08:26] VITALS: BP 102/63
[2017-07-28] MEDS: ONDANSETRON 2MG/ML, 2ML IVPush PRN (10:07)
[2017-07-28] MEDS: D5%-0.45% NACL 1,000 ML IV SCH ×2 (10:09→22:19)
[2017-07-28] MEDS: OCTREOTIDE 100MCG/ML, 1ML (0.1MG/ML) SQ SCH (10:10)
[2017-07-28 19:28] VITALS: BP 120/65
[2017-07-29 01:25] VITALS: BP 104/76
[2017-07-29] MEDS: morphine SULFATE 10 MG/ML, 1ML IVPush PRN ×6 (02:29→23:01)
[2017-07-29] MEDS: PIPERACILLIN/TAZO/PMX 3.375GM 50 ML IV SCH ×3 (04:02→20:03)
[2017-07-29 05:07] LABS: BASOPHILS # (AUTO) 0.03 x10^3/uL (0-0.1); BASOPHILS % (AUTO) 0 % (0-1); EOSINOPHILS # (AUTO) 0.01 x10^3/uL (0-0.4); EOSINOPHILS % (AUTO) 0 % (1-7); LYMPHOCYTES # (AUTO) 1.38 x10^3/uL (1-3.4); LYMPHOCYTES % (AUTO) 14 % (22-44); MD NO; MEAN CORPUSCULAR HEMOGLOBIN 28.7 pg (27.5-34.5); MEAN CORPUSCULAR HGB CONC 33.1 g/dL (33.2-36.2); MEAN CORPUSCULAR VOLUME 86.6 fL (81-97); MEAN PLATELET VOLUME 6.3 fL (7.4-10.4); MONOCYTES # (AUTO) 0.87 x10^3/uL (0.2-0.8); MONOCYTES % (AUTO) 9 % (2-9); NEUTROPHILS % (AUTO) 78 % (42-75); PLATELET COUNT 950 x10^3/uL (130-400); RED BLOOD COUNT 3.67 x10^6/uL (4.38-5.82); RED CELL DISTRIBUTION WIDTH 14.1 % (9.4-14.8)
[2017-07-29 05:18] LABS: CHLORIDE 102 mmol/L (98-107)
[2017-07-29 05:26] LABS: ALANINE AMINOTRANSFERASE 40 U/L (12-78); ALBUMIN 1.3 g/dL (3.4-5.0); ALKALINE PHOSPHATASE 44 U/L (45-117); ANION GAP 5 mmol/L (5-15); BILIRUBIN,TOTAL 0.6 mg/dL (0.2-1.0); CALCIUM 7.6 mg/dL (8.5-10.1); CREATININE 0.52 mg/dL (0.7-1.3); TOTAL PROTEIN 6.4 g/dL (6.4-8.2)
[2017-07-29] MEDS: PANTOPRAZOLE 40 MG IV IVPush SCH ×2 (05:45→16:46)
[2017-07-29] MEDS: HEPARIN 5,000 UNITS/ML, 1ML SQ SCH ×3 (05:45→20:04)
[2017-07-29 07:20] VITALS: BP 108/68
[2017-07-29] MEDS: D5%-0.45% NACL 1,000 ML IV SCH ×2 (07:32→18:44)
[2017-07-29] MEDS ORDERED: SODIUM PHOSPHATE 4 MEQ/ML IV SCH (09:00)
[2017-07-29] MEDS ORDERED: SODIUM PHOSPHATE IV ONE (09:00)
[2017-07-29] MEDS ORDERED: DEXTROSE 5% IV ONE (09:00)
[2017-07-29 12:38] VITALS: BP 112/73
[2017-07-29 20:00] VITALS: BP 130/78
[2017-07-30 01:44] VITALS: BP 124/72
[2017-07-30] MEDS: PIPERACILLIN/TAZO/PMX 3.375GM 50 ML IV SCH ×3 (04:07→22:53)
[2017-07-30] MEDS: morphine SULFATE 10 MG/ML, 1ML IVPush PRN ×6 (04:07→21:42)
[2017-07-30] MEDS: HEPARIN 5,000 UNITS/ML, 1ML SQ SCH ×3 (04:07→22:53)
[2017-07-30] MEDS: D5%-0.45% NACL 1,000 ML IV SCH ×3 (04:14→23:45)
[2017-07-30 04:55] LABS: MEAN CORPUSCULAR HGB CONC 32.5 g/dL (33.2-36.2); MEAN PLATELET VOLUME 6.1 fL (7.4-10.4); RED BLOOD COUNT 4.13 x10^6/uL (4.38-5.82); RED CELL DISTRIBUTION WIDTH 14.6 % (9.4-14.8)
[2017-07-30 04:56] LABS: PLATELET COUNT 1032 x10^3/uL (130-400)
[2017-07-30 04:59] LABS: CHLORIDE 103 mmol/L (98-107)
[2017-07-30 05:07] LABS: ALANINE AMINOTRANSFERASE 45 U/L (12-78); ALBUMIN 1.5 g/dL (3.4-5.0); ALKALINE PHOSPHATASE 48 U/L (45-117); ANION GAP 6 mmol/L (5-15); BILIRUBIN,TOTAL 0.8 mg/dL (0.2-1.0); CALCIUM 7.8 mg/dL (8.5-10.1); CREATININE 0.52 mg/dL (0.7-1.3); TOTAL PROTEIN 6.7 g/dL (6.4-8.2)
[2017-07-30 05:43] LABS: BASOPHILS # (AUTO) 0.04 x10^3/uL (0-0.1); BASOPHILS % (AUTO) 0 % (0-1); EOSINOPHILS # (AUTO) 0.02 x10^3/uL (0-0.4); EOSINOPHILS % (AUTO) 0 % (1-7); LYMPHOCYTES # (AUTO) 1.94 x10^3/uL (1-3.4); LYMPHOCYTES % (AUTO) 15 % (22-44); MD SCAN; MONOCYTES # (AUTO) 1.03 x10^3/uL (0.2-0.8); MONOCYTES % (AUTO) 8 % (2-9); NEUTROPHILS # (AUTO) 9.79 x10^3/uL (1.8-6.8); NEUTROPHILS % (AUTO) 76 % (42-75)
[2017-07-30] MEDS: PANTOPRAZOLE 40 MG IV IVPush SCH (07:38)
[2017-07-30 07:44] VITALS: BP 144/80
[2017-07-30 15:23] VITALS: BP 139/74
[2017-07-30 19:13] VITALS: BP 137/81
[2017-07-31 00:02] VITALS: BP 144/84
[2017-07-31] MEDS: morphine SULFATE 10 MG/ML, 1ML IVPush PRN ×7 (01:58→20:45)
[2017-07-31] MEDS: OXYcodone IR 5MG TABLET PO PRN (03:18)
[2017-07-31 06:11] LABS: ANION GAP 5 mmol/L (5-15); CALCIUM 7.8 mg/dL (8.5-10.1); CHLORIDE 104 mmol/L (98-107)
[2017-07-31 06:30] LABS: MEAN CORPUSCULAR HEMOGLOBIN 28.8 pg (27.5-34.5); MEAN CORPUSCULAR HGB CONC 33.8 g/dL (33.2-36.2); MEAN CORPUSCULAR VOLUME 85.2 fL (81-97); MEAN PLATELET VOLUME 7.1 fL (7.4-10.4); PLATELET COUNT 816 x10^3/uL (130-400); RED BLOOD COUNT 4.04 x10^6/uL (4.38-5.82); RED CELL DISTRIBUTION WIDTH 14.4 % (9.4-14.8)
[2017-07-31 06:40] VITALS: BP 144/87
[2017-07-31 06:45] LABS: BASOPHILS # (AUTO) 0.03 x10^3/uL (0-0.1); BASOPHILS % (AUTO) 0 % (0-1); EOSINOPHILS # (AUTO) 0.06 x10^3/uL (0-0.4); EOSINOPHILS % (AUTO) 1 % (1-7); LYMPHOCYTES # (AUTO) 1.96 x10^3/uL (1-3.4); LYMPHOCYTES % (AUTO) 17 % (22-44); MD SCAN; MONOCYTES # (AUTO) 0.65 x10^3/uL (0.2-0.8); MONOCYTES % (AUTO) 6 % (2-9); NEUTROPHILS # (AUTO) 8.58 x10^3/uL (1.8-6.8); NEUTROPHILS % (AUTO) 76 % (42-75)
[2017-07-31] MEDS ORDERED: TPN PER PHARMACY MC PRN (07:00)
[2017-07-31] MEDS: HEPARIN 5,000 UNITS/ML, 1ML SQ SCH ×3 (08:12→23:03)
[2017-07-31] MEDS: PANTOPRAZOLE 40 MG IV IVPush SCH (08:12)
[2017-07-31] MEDS: PIPERACILLIN/TAZO/PMX 3.375GM 50 ML IV SCH ×3 (08:12→22:52)
[2017-07-31] MEDS ORDERED: D5%-0.45% NACL 1,000 ML IV SCH (08:30)
[2017-07-31] MEDS: D5%-0.45% NACL 1,000 ML IV SCH (10:00)
[2017-07-31 12:10] VITALS: BP_SYST 135; BP_SYST 157; BP_DIAS 86; BP_DIAS 88
[2017-07-31] MEDS ORDERED: [UNRECOGNIZED DRUG - OTHER] IV SCH (17:00)
[2017-07-31] MEDS ORDERED: DEXTROSE 70% IV SCH (17:00)
[2017-07-31] MEDS ORDERED: DEXTROSE 50%, 50ML SYRINGE IVPush PRN (17:00)
[2017-07-31] MEDS ORDERED: FAT EMULSIONS IV SCH (17:00)
[2017-07-31] MEDS ORDERED: DEXTROSE 10% 500 ML IV PRN (17:00)
[2017-07-31] MEDS ORDERED: AMINO ACID 10% IV SCH (17:00)
[2017-07-31] MEDS: FILTER, DISP 1.2 MICRON FOR TPN/PVN IV PRN (18:03)
[2017-07-31 19:45] VITALS: BP 140/87
[2017-07-31] MEDS: INSULIN REGULAR LOW DOSE Q6H X 48HRS SQ-INSULIN SCH (20:23)
[2017-08-01] MEDS: morphine SULFATE 10 MG/ML, 1ML IVPush PRN ×7 (00:21→20:51)
[2017-08-01 01:45] VITALS: BP 141/87
[2017-08-01 01:58] VITALS: BP 140/60
[2017-08-01] MEDS: INSULIN REGULAR LOW DOSE Q6H X 48HRS SQ-INSULIN SCH ×4 (03:16→20:23)
[2017-08-01 06:44] LABS: ALBUMIN 1.6 g/dL (3.4-5.0); ANION GAP 7 mmol/L (5-15); CHLORIDE 102 mmol/L (98-107)
[2017-08-01 06:53] LABS: ALANINE AMINOTRANSFERASE 64 U/L (12-78); ALKALINE PHOSPHATASE 48 U/L (45-117); BILIRUBIN,TOTAL 0.4 mg/dL (0.2-1.0); CREATININE 0.58 mg/dL (0.7-1.3); PREALBUMIN 7.1 mg/dL (20.0-40.0); TOTAL PROTEIN 7.2 g/dL (6.4-8.2); TRIGLYCERIDES 126 mg/dL (50-200)
[2017-08-01] MEDS ORDERED: CATHFLO-ALTEPLASE 2 MG/2 ML CATHFLUSH ONE ×2 (07:30)
[2017-08-01] MEDS: HEPARIN 5,000 UNITS/ML, 1ML SQ SCH ×3 (07:52→23:11)
[2017-08-01] MEDS: PANTOPRAZOLE 40 MG IV IVPush SCH (07:52)
[2017-08-01] MEDS: PIPERACILLIN/TAZO/PMX 3.375GM 50 ML IV SCH ×3 (07:52→23:11)
[2017-08-01 08:04] LABS: MEAN CORPUSCULAR HEMOGLOBIN 27.9 pg (27.5-34.5); MEAN CORPUSCULAR HGB CONC 32.8 g/dL (33.2-36.2); MEAN CORPUSCULAR VOLUME 84.8 fL (81-97); RED BLOOD COUNT 4.28 x10^6/uL (4.38-5.82); RED CELL DISTRIBUTION WIDTH 14.5 % (9.4-14.8)
[2017-08-01 08:26] LABS: MD YES
[2017-08-01 08:29] LABS: BAND#(MANUAL) 1.55 x10^3/uL; BANDS%(MANUAL) 13 % (0-7); EOS% (MANUAL) 1 % (1-7); LYMPH#(MANUAL) 1.67 x10^3/uL (1-3.4); LYMPHS% (MANUAL) 14 % (22-44); MONOS#(MANUAL) 1.07 x10^3/uL (0.3-2.7); MONOS% (MANUAL) 9 % (2-9); SEG#(MANUAL) 7.38 x10^3/uL (1.8-6.8); SEGS% (MANUAL) 62 % (42-75)
[2017-08-01 08:30] LABS: ANISOCYTOSIS 1+; EOS#(MANUAL) 0.12 x10^3/uL (0.0-0.4); MYELOCYTES# (MANUAL) 0.12 x10^3/uL (0-0); MYELOCYTES% (MANUAL) 1 % (0-0); POLYCHROMASIA 1+
[2017-08-01 08:43] VITALS: BP 129/86
[2017-08-01 10:48] LABS: <PLATELET ESTIMATE> INCREASED
[2017-08-01] MEDS: D5%-0.45% NACL 1,000 ML IV SCH (11:06)
[2017-08-01 14:09] VITALS: BP 153/92
[2017-08-01] MEDS: FILTER, DISP 1.2 MICRON FOR TPN/PVN IV PRN (16:31)
[2017-08-01] MEDS ORDERED: AMINO ACID 10% IV SCH (17:00)
[2017-08-01] MEDS ORDERED: [UNRECOGNIZED DRUG - OTHER] IV SCH (17:00)
[2017-08-01] MEDS ORDERED: DEXTROSE 70% IV SCH (17:00)
[2017-08-01] MEDS ORDERED: FAT EMULSIONS IV SCH (17:00)
[2017-08-01 19:26] VITALS: BP 153/90
[2017-08-01 19:29] VITALS: BP 141/80
[2017-08-02] MEDS: morphine SULFATE 10 MG/ML, 1ML IVPush PRN ×8 (00:02→23:06)
[2017-08-02 03:33] VITALS: BP 121/80
[2017-08-02] MEDS: INSULIN REGULAR LOW DOSE Q6H X 48HRS SQ-INSULIN SCH ×3 (03:54→15:00)
[2017-08-02 05:10] LABS: CALCIUM 7.9 mg/dL (8.5-10.1); CHLORIDE 102 mmol/L (98-107)
[2017-08-02 05:14] LABS: ANION GAP 7 mmol/L (5-15); CREATININE 0.51 mg/dL (0.7-1.3)
[2017-08-02] MEDS: HEPARIN 5,000 UNITS/ML, 1ML SQ SCH ×3 (07:25→23:06)
[2017-08-02] MEDS: PIPERACILLIN/TAZO/PMX 3.375GM 50 ML IV SCH ×3 (07:25→23:06)
[2017-08-02 07:32] VITALS: BP 132/86
[2017-08-02 08:58] LABS: MEAN CORPUSCULAR HEMOGLOBIN 28.4 pg (27.5-34.5); MEAN CORPUSCULAR HGB CONC 33.5 g/dL (33.2-36.2); MEAN CORPUSCULAR VOLUME 84.7 fL (81-97); RED BLOOD COUNT 4.07 x10^6/uL (4.38-5.82); RED CELL DISTRIBUTION WIDTH 14.3 % (9.4-14.8)
[2017-08-02] MEDS: PANTOPRAZOLE 40 MG IV IVPush SCH (09:05)
[2017-08-02 09:28] LABS: MD YES
[2017-08-02 09:30] LABS: BAND#(MANUAL) 1.82 x10^3/uL; BANDS%(MANUAL) 14 % (0-7); EOS#(MANUAL) 0.13 x10^3/uL (0.0-0.4); EOS% (MANUAL) 1 % (1-7); LYMPH#(MANUAL) 1.82 x10^3/uL (1-3.4); LYMPHS% (MANUAL) 14 % (22-44); MONOS#(MANUAL) 1.17 x10^3/uL (0.3-2.7); MONOS% (MANUAL) 9 % (2-9); REACTIVE LYMPHS # (MANUAL) 0.39 x10^3/uL (0-0); REACTIVE LYMPHS % (MANUAL) 3 % (0-0)
[2017-08-02 09:31] LABS: ANISOCYTOSIS 1+; POLYCHROMASIA 1+
[2017-08-02 09:32] LABS: METAMYELOCYTES# (MANUAL) 0.13 x10^3/uL (0-0); METAMYELOCYTES% (MANUAL) 1 % (0-1); MYELOCYTES# (MANUAL) 0.13 x10^3/uL (0-0); MYELOCYTES% (MANUAL) 1 % (0-0); SEGS% (MANUAL) 57 % (42-75)
[2017-08-02 09:33] LABS: SEG#(MANUAL) 7.41 x10^3/uL (1.8-6.8)
[2017-08-02 09:36] LABS: <PLATELET ESTIMATE> INCREASED; <PLT MORPHOLOGY> NORMAL PLT MORPH
[2017-08-02 15:00] VITALS: BP 127/82
[2017-08-02] MEDS: FILTER, DISP 1.2 MICRON FOR TPN/PVN IV PRN (16:17)
[2017-08-02] MEDS ORDERED: [UNRECOGNIZED DRUG - OTHER] IV SCH (17:00)
[2017-08-02] MEDS ORDERED: DEXTROSE 70% IV SCH (17:00)
[2017-08-02] MEDS ORDERED: FAT EMULSIONS IV SCH (17:00)
[2017-08-02] MEDS ORDERED: AMINO ACID 10% IV SCH (17:00)
[2017-08-02 20:07] VITALS: BP 140/87
[2017-08-02] MEDS: D5%-0.45% NACL 1,000 ML IV SCH (20:12)
[2017-08-03] MEDS: morphine SULFATE 10 MG/ML, 1ML IVPush PRN ×7 (02:39→21:14)
[2017-08-03 02:50] VITALS: BP 124/83
[2017-08-03 06:15] LABS: ANION GAP 6 mmol/L (5-15); CALCIUM 7.9 mg/dL (8.5-10.1); CHLORIDE 103 mmol/L (98-107); CREATININE 0.58 mg/dL (0.7-1.3)
[2017-08-03 07:33] VITALS: BP 125/80
[2017-08-03] MEDS: HEPARIN 5,000 UNITS/ML, 1ML SQ SCH ×3 (08:30→23:13)
[2017-08-03] MEDS: PANTOPRAZOLE 40 MG IV IVPush SCH (08:30)
[2017-08-03] MEDS: PIPERACILLIN/TAZO/PMX 3.375GM 50 ML IV SCH ×3 (08:31→23:13)
[2017-08-03] MEDS: INSULIN REGULAR LOW DOSE QDAY SQ-INSULIN SCH (09:00)
[2017-08-03 13:32] VITALS: BP 114/76
[2017-08-03] MEDS ORDERED: [UNRECOGNIZED DRUG - OTHER] IV SCH (17:00)
[2017-08-03] MEDS ORDERED: FAT EMULSIONS IV SCH (17:00)
[2017-08-03] MEDS ORDERED: DEXTROSE 70% IV SCH (17:00)
[2017-08-03] MEDS ORDERED: AMINO ACID 10% IV SCH (17:00)
[2017-08-03] MEDS: FILTER, DISP 1.2 MICRON FOR TPN/PVN IV PRN (18:14)
[2017-08-03 20:33] VITALS: BP 126/76
[2017-08-04] MEDS: morphine SULFATE 10 MG/ML, 1ML IVPush PRN ×8 (00:29→23:04)
[2017-08-04 01:41] VITALS: BP 110/71
[2017-08-04 04:03] LABS: ALANINE AMINOTRANSFERASE 46 U/L (12-78); ALBUMIN 1.7 g/dL (3.4-5.0); ANION GAP 9 mmol/L (5-15); CHLORIDE 107 mmol/L (98-107); CREATININE 0.56 mg/dL (0.7-1.3)
[2017-08-04 04:05] LABS: ALKALINE PHOSPHATASE 71 U/L (45-117); BILIRUBIN,TOTAL 0.5 mg/dL (0.2-1.0); TOTAL PROTEIN 7.8 g/dL (6.4-8.2)
[2017-08-04 04:36] LABS: MEAN CORPUSCULAR HEMOGLOBIN 28.2 pg (27.5-34.5); MEAN CORPUSCULAR HGB CONC 33.1 g/dL (33.2-36.2); MEAN CORPUSCULAR VOLUME 85.3 fL (81-97); MEAN PLATELET VOLUME 5.9 fL (7.4-10.4); PLATELET COUNT 424 x10^3/uL (130-400); RED CELL DISTRIBUTION WIDTH 14.6 % (9.4-14.8)
[2017-08-04 04:55] LABS: MD YES
[2017-08-04 05:01] LABS: BAND#(MANUAL) 0.14 x10^3/uL; BANDS%(MANUAL) 1 % (0-7); EOS#(MANUAL) 0.27 x10^3/uL (0.0-0.4); EOS% (MANUAL) 2 % (1-7); LYMPH#(MANUAL) 2.19 x10^3/uL (1-3.4); LYMPHS% (MANUAL) 16 % (22-44); METAMYELOCYTES# (MANUAL) 0.14 x10^3/uL (0-0); METAMYELOCYTES% (MANUAL) 1 % (0-1); MONOS#(MANUAL) 1.37 x10^3/uL (0.3-2.7); MONOS% (MANUAL) 10 % (2-9); REACTIVE LYMPHS # (MANUAL) 0.14 x10^3/uL (0-0); REACTIVE LYMPHS % (MANUAL) 1 % (0-0); SEG#(MANUAL) 9.45 x10^3/uL (1.8-6.8); SEGS% (MANUAL) 69 % (42-75)
[2017-08-04 05:02] LABS: <PLATELET ESTIMATE> INCREASED; <PLT MORPHOLOGY> NORMAL PLT MORPH; <RBC MORPHOLOGY> NORMAL; PMNS WITH VACUOLES 2+
[2017-08-04 06:45] VITALS: BP 130/84
[2017-08-04] MEDS: PIPERACILLIN/TAZO/PMX 3.375GM 50 ML IV SCH ×3 (08:01→23:04)
[2017-08-04] MEDS: HEPARIN 5,000 UNITS/ML, 1ML SQ SCH ×3 (08:01→23:10)
[2017-08-04] MEDS: PANTOPRAZOLE 40 MG IV IVPush SCH (08:01)
[2017-08-04] MEDS: INSULIN REGULAR LOW DOSE QDAY SQ-INSULIN SCH (08:07)
[2017-08-04 12:21] VITALS: BP 111/75
[2017-08-04] MEDS: FILTER, DISP 1.2 MICRON FOR TPN/PVN IV PRN (16:51)
[2017-08-04] MEDS ORDERED: AMINO ACID 10% IV SCH (17:00)
[2017-08-04] MEDS ORDERED: DEXTROSE 70% IV SCH (17:00)
[2017-08-04] MEDS ORDERED: [UNRECOGNIZED DRUG - OTHER] IV SCH (17:00)
[2017-08-04] MEDS ORDERED: FAT EMULSIONS IV SCH (17:00)
[2017-08-04 19:40] VITALS: BP 129/80
[2017-08-04] MEDS: D5%-0.45% NACL 1,000 ML IV SCH (23:09)
[2017-08-05 01:32] VITALS: BP 127/86
[2017-08-05] MEDS: morphine SULFATE 10 MG/ML, 1ML IVPush PRN ×8 (02:11→23:26)
[2017-08-05 05:06] LABS: MEAN CORPUSCULAR HEMOGLOBIN 28.4 pg (27.5-34.5); MEAN CORPUSCULAR HGB CONC 33.2 g/dL (33.2-36.2); MEAN CORPUSCULAR VOLUME 85.5 fL (81-97); MEAN PLATELET VOLUME 7.6 fL (7.4-10.4); PLATELET COUNT 313 x10^3/uL (130-400); RED BLOOD COUNT 4.36 x10^6/uL (4.38-5.82); RED CELL DISTRIBUTION WIDTH 14.7 % (9.4-14.8)
[2017-08-05 05:11] LABS: ANION GAP 7 mmol/L (5-15); CALCIUM 8.1 mg/dL (8.5-10.1); CHLORIDE 100 mmol/L (98-107)
[2017-08-05 05:40] LABS: MD YES
[2017-08-05 05:45] LABS: BAND#(MANUAL) 0.15 x10^3/uL; BANDS%(MANUAL) 1 % (0-7); EOS#(MANUAL) 0.15 x10^3/uL (0.0-0.4); EOS% (MANUAL) 1 % (1-7); LYMPH#(MANUAL) 4.08 x10^3/uL (1-3.4); LYMPHS% (MANUAL) 27 % (22-44); METAMYELOCYTES# (MANUAL) 0.15 x10^3/uL (0-0); METAMYELOCYTES% (MANUAL) 1 % (0-1); MONOS#(MANUAL) 0.45 x10^3/uL (0.3-2.7); MONOS% (MANUAL) 3 % (2-9); SEG#(MANUAL) 10.12 x10^3/uL (1.8-6.8); SEGS% (MANUAL) 67 % (42-75)
[2017-08-05 05:46] LABS: <RBC MORPHOLOGY> NORMAL
[2017-08-05 05:47] LABS: <PLATELET ESTIMATE> ADEQUATE; <PLT MORPHOLOGY> NORMAL PLT MORPH; PMNS WITH VACUOLES 2+; SMUDGE CELLS 1+
[2017-08-05 06:00] LABS: BASOPHILS # (AUTO) 0.12 x10^3/uL (0-0.1); BASOPHILS % (AUTO) 1 % (0-1); EOSINOPHILS # (AUTO) 0.05 x10^3/uL (0-0.4); EOSINOPHILS % (AUTO) 0 % (1-7); LYMPHOCYTES # (AUTO) 1.74 x10^3/uL (1-3.4); LYMPHOCYTES % (AUTO) 12 % (22-44); MONOCYTES # (AUTO) 0.83 x10^3/uL (0.2-0.8); MONOCYTES % (AUTO) 6 % (2-9); NEUTROPHILS # (AUTO) 12.36 x10^3/uL (1.8-6.8); NEUTROPHILS % (AUTO) 82 % (42-75)
[2017-08-05] MEDS: PIPERACILLIN/TAZO/PMX 3.375GM 50 ML IV SCH ×3 (06:24→23:26)
[2017-08-05] MEDS: HEPARIN 5,000 UNITS/ML, 1ML SQ SCH ×3 (06:25→23:26)
[2017-08-05 07:20] VITALS: BP 131/77
[2017-08-05] MEDS: PANTOPRAZOLE 40 MG IV IVPush SCH (08:08)
[2017-08-05] MEDS: INSULIN REGULAR LOW DOSE QDAY SQ-INSULIN SCH (08:14)
[2017-08-05] MEDS ORDERED: OMNIPAQUE 350 MG/ML, 100ML BOTTLE ONE (10:18)
[2017-08-05 13:01] VITALS: BP 123/78
[2017-08-05] MEDS ORDERED: AMINO ACID 10% IV SCH (17:00)
[2017-08-05] MEDS ORDERED: DEXTROSE 70% IV SCH (17:00)
[2017-08-05] MEDS ORDERED: FAT EMULSIONS IV SCH (17:00)
[2017-08-05] MEDS ORDERED: [UNRECOGNIZED DRUG - OTHER] IV SCH (17:00)
[2017-08-05] MEDS: FILTER, DISP 1.2 MICRON FOR TPN/PVN IV PRN (17:36)
[2017-08-05 19:58] VITALS: BP 122/77
[2017-08-06] MEDS: morphine SULFATE 10 MG/ML, 1ML IVPush PRN ×6 (02:37→21:53)
[2017-08-06] MEDS: D5%-0.45% NACL 1,000 ML IV SCH (04:28)
[2017-08-06 04:37] LABS: ALANINE AMINOTRANSFERASE 41 U/L (12-78); ALBUMIN 1.6 g/dL (3.4-5.0); ANION GAP 6 mmol/L (5-15); CALCIUM 7.3 mg/dL (8.5-10.1); CHLORIDE 106 mmol/L (98-107)
[2017-08-06 04:39] LABS: ALKALINE PHOSPHATASE 69 U/L (45-117); BILIRUBIN,TOTAL 0.6 mg/dL (0.2-1.0); TOTAL PROTEIN 7.3 g/dL (6.4-8.2)
[2017-08-06 04:47] VITALS: BP 117/78
[2017-08-06 05:34] LABS: BASOPHILS # (AUTO) 0.05 x10^3/uL (0-0.1); BASOPHILS % (AUTO) 0 % (0-1); EOSINOPHILS # (AUTO) 0.04 x10^3/uL (0-0.4); EOSINOPHILS % (AUTO) 0 % (1-7); LYMPHOCYTES # (AUTO) 1.49 x10^3/uL (1-3.4); LYMPHOCYTES % (AUTO) 9 % (22-44); MD SCAN; MEAN CORPUSCULAR HEMOGLOBIN 27.9 pg (27.5-34.5); MEAN CORPUSCULAR VOLUME 84.7 fL (81-97); MEAN PLATELET VOLUME 8.6 fL (7.4-10.4); MONOCYTES # (AUTO) 0.53 x10^3/uL (0.2-0.8); MONOCYTES % (AUTO) 3 % (2-9); NEUTROPHILS # (AUTO) 14.61 x10^3/uL (1.8-6.8); NEUTROPHILS % (AUTO) 88 % (42-75); PLATELET COUNT 315 x10^3/uL (130-400); RED CELL DISTRIBUTION WIDTH 14.5 % (9.4-14.8)
[2017-08-06 07:20] VITALS: BP 113/75
[2017-08-06] MEDS: INSULIN REGULAR LOW DOSE QDAY SQ-INSULIN SCH (09:00)
[2017-08-06] MEDS: PIPERACILLIN/TAZO/PMX 3.375GM 50 ML IV SCH ×2 (09:38→18:42)
[2017-08-06] MEDS: HEPARIN 5,000 UNITS/ML, 1ML SQ SCH ×2 (09:38→18:43)
[2017-08-06] MEDS: PANTOPRAZOLE 40 MG IV IVPush SCH (09:39)
[2017-08-06] MEDS ORDERED: LIDOCAINE 2%, 20ML ONE (11:21)
[2017-08-06] MEDS ORDERED: NALOXONE 1 MG/ML, 2ML ONE (11:31)
[2017-08-06] MEDS ORDERED: FLUMAZENIL 0.1 MG/1 ML, 5ML ONE (11:31)
[2017-08-06] MEDS ORDERED: MIDAZOLAM 1 MG/ML, 5ML ONE (11:31)
[2017-08-06] MEDS ORDERED: FENTANYL PF 100 MCG/2ML ONE ×2 (11:31)
[2017-08-06 14:29] VITALS: BP 117/76
[2017-08-06] MEDS ORDERED: [UNRECOGNIZED DRUG - OTHER] IV SCH (17:00)
[2017-08-06] MEDS ORDERED: FAT EMULSIONS IV SCH (17:00)
[2017-08-06] MEDS ORDERED: AMINO ACID 10% IV SCH (17:00)
[2017-08-06] MEDS ORDERED: DEXTROSE 70% IV SCH (17:00)
[2017-08-06] MEDS: FILTER, DISP 1.2 MICRON FOR TPN/PVN IV PRN (18:41)
[2017-08-06 19:24] VITALS: BP 112/73
[2017-08-06 23:39] LABS: MICROSCOPIC AUTO
[2017-08-06 23:43] LABS: CULTURE INDICATED? NO
[2017-08-07] MEDS: morphine SULFATE 10 MG/ML, 1ML IVPush PRN ×8 (00:54→23:03)
[2017-08-07 01:15] VITALS: BP 112/76
[2017-08-07] MEDS: HEPARIN 5,000 UNITS/ML, 1ML SQ SCH ×3 (03:38→16:52)
[2017-08-07] MEDS: PIPERACILLIN/TAZO/PMX 3.375GM 50 ML IV SCH ×3 (03:38→17:00)
[2017-08-07 03:46] LABS: MEAN CORPUSCULAR HEMOGLOBIN 27.8 pg (27.5-34.5); MEAN CORPUSCULAR HGB CONC 32.3 g/dL (33.2-36.2); MEAN CORPUSCULAR VOLUME 86.1 fL (81-97); RED BLOOD COUNT 4.34 x10^6/uL (4.38-5.82); RED CELL DISTRIBUTION WIDTH 14.4 % (9.4-14.8)
[2017-08-07 03:47] LABS: MD YES; PLATELET COUNT 326 x10^3/uL (130-400)
[2017-08-07 03:48] LABS: ANION GAP 7 mmol/L (5-15); CALCIUM 8.1 mg/dL (8.5-10.1); CHLORIDE 102 mmol/L (98-107); CREATININE 0.55 mg/dL (0.7-1.3)
[2017-08-07 04:13] LABS: BAND#(MANUAL) 0.27 x10^3/uL; BANDS%(MANUAL) 2 % (0-7); EOS#(MANUAL) 0.14 x10^3/uL (0.0-0.4); EOS% (MANUAL) 1 % (1-7); LYMPH#(MANUAL) 2.16 x10^3/uL (1-3.4); LYMPHS% (MANUAL) 16 % (22-44); MONOS#(MANUAL) 1.35 x10^3/uL (0.3-2.7); MONOS% (MANUAL) 10 % (2-9); REACTIVE LYMPHS # (MANUAL) 0.14 x10^3/uL (0-0); REACTIVE LYMPHS % (MANUAL) 1 % (0-0); SEG#(MANUAL) 9.45 x10^3/uL (1.8-6.8); SEGS% (MANUAL) 70 % (42-75)
[2017-08-07 04:14] LABS: <PLATELET ESTIMATE> ADEQUATE; <PLT MORPHOLOGY> NORMAL PLT MORPH; <RBC MORPHOLOGY> NORMAL; PMNS WITH VACUOLES 1+
[2017-08-07 07:45] VITALS: BP 118/77
[2017-08-07] MEDS: INSULIN REGULAR LOW DOSE QDAY SQ-INSULIN SCH (08:12)
[2017-08-07] MEDS: PANTOPRAZOLE 40 MG IV IVPush SCH (08:12)
[2017-08-07] MEDS ORDERED: TPN PER PHARMACY MC PRN (09:30)
[2017-08-07 13:40] VITALS: BP 116/76
[2017-08-07] MEDS: FILTER, DISP 1.2 MICRON FOR TPN/PVN IV PRN (16:57)
[2017-08-07] MEDS ORDERED: AMINO ACID 10% IV SCH ×2 (17:00)
[2017-08-07] MEDS ORDERED: [UNRECOGNIZED DRUG - OTHER] IV SCH (17:00)
[2017-08-07] MEDS ORDERED: [UNRECOGNIZED DRUG - OTHER] IV SCH (17:00)
[2017-08-07] MEDS ORDERED: DEXTROSE 70% IV SCH ×2 (17:00)
[2017-08-07] MEDS ORDERED: FAT EMULSIONS IV SCH ×2 (17:00)
[2017-08-07 18:53] VITALS: BP 144/71
[2017-08-07 18:54] VITALS: BP 117/76
[2017-08-08] MEDS: PIPERACILLIN/TAZO/PMX 3.375GM 50 ML IV SCH ×2 (00:51→08:35)
[2017-08-08] MEDS: HEPARIN 5,000 UNITS/ML, 1ML SQ SCH ×3 (00:51→16:08)
[2017-08-08 01:50] VITALS: BP 112/73
[2017-08-08] MEDS: morphine SULFATE 10 MG/ML, 1ML IVPush PRN ×5 (02:19→16:08)
[2017-08-08 04:56] LABS: MEAN CORPUSCULAR HEMOGLOBIN 28.2 pg (27.5-34.5); MEAN CORPUSCULAR HGB CONC 33.2 g/dL (33.2-36.2); MEAN CORPUSCULAR VOLUME 84.9 fL (81-97); MEAN PLATELET VOLUME 7.8 fL (7.4-10.4); PLATELET COUNT 309 x10^3/uL (130-400); RED BLOOD COUNT 4.14 x10^6/uL (4.38-5.82); RED CELL DISTRIBUTION WIDTH 14.4 % (9.4-14.8)
[2017-08-08 05:06] LABS: ALANINE AMINOTRANSFERASE 40 U/L (12-78); ALBUMIN 1.8 g/dL (3.4-5.0); ANION GAP 6 mmol/L (5-15); CALCIUM 7.9 mg/dL (8.5-10.1); CHLORIDE 101 mmol/L (98-107); CREATININE 0.57 mg/dL (0.7-1.3)
[2017-08-08 05:09] LABS: ALKALINE PHOSPHATASE 88 U/L (45-117); BILIRUBIN,TOTAL 0.7 mg/dL (0.2-1.0); TOTAL PROTEIN 8.2 g/dL (6.4-8.2)
[2017-08-08 05:21] LABS: BASOPHILS # (AUTO) 0.08 x10^3/uL (0-0.1); BASOPHILS % (AUTO) 1 % (0-1); EOSINOPHILS # (AUTO) 0.14 x10^3/uL (0-0.4); EOSINOPHILS % (AUTO) 1 % (1-7); LYMPHOCYTES # (AUTO) 1.74 x10^3/uL (1-3.4); LYMPHOCYTES % (AUTO) 16 % (22-44); MD SCAN; MONOCYTES # (AUTO) 0.93 x10^3/uL (0.2-0.8); MONOCYTES % (AUTO) 9 % (2-9); NEUTROPHILS # (AUTO) 7.97 x10^3/uL (1.8-6.8); NEUTROPHILS % (AUTO) 73 % (42-75)
[2017-08-08 07:40] VITALS: BP 116/75
[2017-08-08] MEDS: PANTOPRAZOLE 40 MG IV IVPush SCH (08:35)
[2017-08-08] MEDS: INSULIN REGULAR LOW DOSE QDAY SQ-INSULIN SCH (08:36)
[2017-08-08] MEDS ORDERED: BISACODYL 10 MG SUPP PR PRN (13:00)
[2017-08-08] MEDS: SENNA/DOCUSATE TABLET PO PRN (13:08)
[2017-08-08 13:21] VITALS: BP 108/70
[2017-08-08] MEDS ORDERED: PANT40TA3 PO (13:49)
[2017-08-08] MEDS ORDERED: PIPE3.375 IV (13:49)
[2017-08-08] MEDS ORDERED: MAG30ORA PO (13:49)
[2017-08-08] MEDS ORDERED: POLY17PO5 PO (13:49)
[2017-08-08] MEDS ORDERED: ONDA4VIA4 IVPush (13:49)
[2017-08-08] MEDS ORDERED: OXYC5TAB3 PO (13:49)
[2017-08-08] MEDS ORDERED: INSU100V5 SQ-INSULIN (13:49)
[2017-08-08] MEDS ORDERED: MORP10VI10 IVPush (13:49)
[2017-08-08] MEDS ORDERED: LACT1CAP24 PO (14:03)
[2017-08-08] MEDS ORDERED: morphine SULFATE 10 MG/ML, 1ML ONE (16:03)
== END 2017-08-08 17:50 | DRG 871 ==
LOC: ED 07:06 → EDIP 07:43 → 3NW 08:17 → UNDODISIN 08-08 13:49
PROVIDERS: ADMIT Hospitalist; ATTEND Hospitalist
PROC: 0DHA3UZ Insertion of Feeding Device into Jejunum, Percutaneous Approach (ICD-10-PCS; principal; 2017-07-27 14:30)
PROC: 0DH64UZ Insertion of Feeding Device into Stomach, Percutaneous Endoscopic Approach (ICD-10-PCS; 2017-07-27 14:30)
PROC: 02HV33Z Insertion of Infusion Device into Superior Vena Cava, Percutaneous Approach (ICD-10-PCS; 2017-07-31)
PROC: B548ZZA Ultrasonography of Superior Vena Cava, Guidance (ICD-10-PCS; 2017-07-31)
PROC: 0W9H30Z Drainage of Retroperitoneum with Drainage Device, Percutaneous Approach (ICD-10-PCS; 2017-08-06)
DX: A41.9 Sepsis, unspecified organism (principal); E43 Unspecified severe protein-calorie malnutrition; K85.10 Biliary acute pancreatitis without necrosis or infection; K31.5 Obstruction of duodenum; I11.9 Hypertensive heart disease without heart failure; K76.0 Fatty (change of) liver, not elsewhere classified; E87.1 Hypo-osmolality and hyponatremia; I87.1 Compression of vein; K86.3 Pseudocyst of pancreas; D64.9 Anemia, unspecified; Z68.30 Body mass index [BMI] 30.0-30.9, adult; E66.9 Obesity, unspecified; E87.6 Hypokalemia; F41.9 Anxiety disorder, unspecified; I25.10 Atherosclerotic heart disease of native coronary artery without angina pectoris; K57.90 Diverticulosis of intestine, part unspecified, without perforation or abscess without bleeding; Z79.899 Other long term (current) drug therapy; Z87.891 Personal history of nicotine dependence; Z90.49 Acquired absence of other specified parts of digestive tract; Z98.84 Bariatric surgery status
CPT/HCPCS: 36415; 36569; 49405; 49406; 71045; 74020; 74177; 76700; 76937; 77001; 80048; 80053; 81001; 82962; 83605; 83690; 83735; 84100; 84134; 84145; 84478; 85025; 87040; 87070; 87075; 87077; 87186; 87205; 88305; 93005; 96361; 96374; 96375; 96376; 99156; 99157; B4087; C1894; J0171; J0610; J0690; J1100; J1170; J1644; J1815; J2250; J2354; J2405; J2543; J2704; J2710; J2997; J3010; J3475; J3480; J3490; J7060; Q9967; C1729; C1751; C1760; C1769; C9113; J0330; J2270; J2310; J3420; J7030; J7040; S0028